=== PATIENT | female | born 1980 | race Caucasian/White ===

== ENCOUNTER 2020-10-26 09:52 | Outpatient (REF) | payer MEDICAID, SELFPAY | END 2020-10-26 09:53 | disposition home or self-care (01) | LOC: HO.LAB 09:52 | PROVIDERS: Visit Provider Internal Medicine | DX: Z20.822 Contact with and (suspected) exposure to COVID-19 (principal) | CPT/HCPCS: 36415; C9803; U0003 ==

== ENCOUNTER 2020-11-06 11:24 | Outpatient (REF) | payer MEDICAID, SELFPAY | END 2020-11-06 11:25 | disposition home or self-care (01) | LOC: HO.LAB 11:24 | PROVIDERS: Visit Provider Internal Medicine | DX: Z20.822 Contact with and (suspected) exposure to COVID-19 (principal) | CPT/HCPCS: 36415; C9803; U0003; U0005 ==

== ENCOUNTER 2021-02-18 09:26 | Emergency (ER) | payer MEDICAID, SELFPAY ==
--- NOTE | ~2021-02-18 | US_ITS ---
EXAMINATION: US VENOUS ULTRASOUND WITH DOPPLER LOWER EXTREMITY, BILATERAL CLINICAL INFORMATION: Pain, swelling COMPARISON: None TECHNIQUE: Ultrasound of the deep veins is performed from the hip to the calf with compression sonography and color and pulse Doppler assessment. Spectral analysis with color-flow imaging is performed. FINDINGS: RIGHT: There is normal venous compression and respiratory variation and augmented flow. The visualized common femoral vein, superficial femoral vein, profunda femoral vein, popliteal vein, and the trifurcation region shows no evidence of deep venous thrombosis. There is no significant popliteal fossa cyst. LEFT: There is normal venous compression and respiratory variation and augmented flow. The visualized common femoral vein, superficial femoral vein, profunda femoral vein, popliteal vein, and the trifurcation region shows no evidence of deep venous thrombosis. There is no significant popliteal fossa cyst. Prominent left inguinal lymph nodes are present. If the patient's symptoms persist, followup ultrasound in 5 days 7 days might be of value to exclude proximal propagation from a non-visualized calf vein. US/US venous duplex LE BI IMPRESSION: No DVT demonstrated in the bilateral lower extremity.
--- NOTE | 2021-02-18 12:32 | PC.NURSE ---
CALLED WR PATIENT, NO RESPONSE TO CALL FOR TRIAGE
[2021-02-18 15:54] VITALS: BP 109/79; PULSE 70; RESP 16; TEMP 36.4; O2SAT 96; BMI 35.2
--- NOTE | 2021-02-18 18:00 | ED_ITS ---
HPI - General Adult General Chief complaint: General Medical Stated complaint: leg swollen,breast swollen Time Seen by Provider: 02/18/21 17:57 Source: patient Mode of arrival: ambulatory Limitations: no limitations History of Present Illness MD complaint: lower extremity pain and swelling Onset (ago): day(s) (2) Location: left, right and lower extremity Radiation: non-radiation Severity: moderate Quality: aching Pain Consistency: constant Relieving factors: none Exacerbating factors: movement Associated symptoms: other (has redness to lower legs also c/o small pimple under R breast) Treatments prior to arrival: none Related Data Previous Rx's Medication Instructions Recorded cephalexin 500 mg PO BID 7 Days #14 cap 02/18/21 doxycycline hyclate 100 mg PO BID 7 Days #14 cap 02/18/21 furosemide [Lasix] 20 mg PO DAILY 3 Days #3 tab 02/18/21 Allergies Allergy/AdvReac Type Severity Reaction Status Date / Time No Known Allergies Allergy Unverified 06/15/20 15:20 Review of Systems Review of Systems: Constitutional : No Weight loss, No Fever, No Chills, No Fatigue, No Malaise ENT/Mouth : No sore throat, No Rhinorrhea Eyes: No Eye Pain, No Swelling, No Redness Cardiovascular : No Chest Pain, No SOB, No Dyspnea on Exertion, No Orthopnea, pos Edema, No Palpitations Respiratory : No Cough, No Sputum, No Wheezing Gastrointestinal : No Nausea, No Vomiting, No Diarrhea, No Constipation, No abdominal Pain, No Hematochezia, No Melena Genitourinary : No Dysuria, No Urinary Frequency, No Hematuria, Musculoskeletal : No joint pain, No Myalgias, No Joint Swelling Skin : No Skin Lesions, pos rash Neuro : No Weakness, No Numbness, No Dizziness, No Headache Psych : No Anxiety/Panic, No Depression Heme/Lymph: No Bruising, No Bleeding,No Lymphadenopathy Endocrine : No Polyuria, No Polydipsia All other systems reviewed and are negative [facility] Past Medical History Attestation statement: The following information was validated with the patient. Medical History No active medical problems Surgical History (Updated 02/18/21 @ 15:59 by Kiley Browne) Previous section Social History Social History (Updated 02/18/21 @ 18:09 by Lyndsay Saenz DO) Smoking Status: Never smoker Advance Directives: Yes Advance Directives Information Provided: Yes Advance Directives on File: No Patient : No Physical Exam Vital Signs: Vital Signs: Last Vital Signs Temp 97.6 F 02/18/21 15:54 Pulse 70 02/18/21 15:54 Resp 16 02/18/21 15:54 BP 109/79 02/18/21 15:54 Pulse Ox 96 02/18/21 15:54 Body Mass Index 35.2 Appearance: Alert. Oriented X3. No acute distress. Eyes: Pupils equal, round and reactive to light. ENT: Pharynx normal. Neck: Normal inspection. Neck supple. CVS: Normal heart rate and rhythm. Pulses normal. chest: R breast small pimple under breast - drained no fluctuance no erythema Respiratory: No respiratory distress. Breath sounds normal. Abdomen: Soft and nontender. Skin: Skin warm and dry. Normal skin color. Normal skin turgor. Extremities: 1+ bilateral lower extremity edema. mild erythema no fluctuance, no lymphangitis, mild warmth anterior shins Neuro: Oriented X 3. No motor deficit. No sensory deficit. Course Course Course Narrative: negative for DVT afebrile no WBC count will start on abx and lasix x 2 days Medical Decision Making MDM Narrative Medical decision making narrative: 40 yo female with LE edema with mild erythema appears mild cellulitis denies systemic symptoms at this time will obtain basic labs, US to r/o DVT, likely PO abx and lasix x 2 days Lab Data Result diagrams: 02/18/21 18:16 02/18/21 18:16 Labs: Lab Results 02/18/21 02/18/21 02/18/21 Range/Units 18:16 18:16 18:16 WBC 5.4 (4.8-10.8) X10*3/uL RBC 4.25 (4.20-5.50) X10*6/uL Hgb 10.6 L (12.0-16.0) g/dl Hct 35.3 L (37-47) % MCV 83.1 (80-98) fL MCH 24.9 L (27.0-33.0) pg MCHC 30.0 L (31.0-35.0) g/dl RDW 15.0 (11.0-16.0) % Plt Count 346 (160-400) X10*3/uL MPV 10.3 (9.4-12.3) fL Immature Gran % (Auto) 0.4 (0.0-0.4) % Neut % (Auto) 43.5 L (45-73) % Lymph % (Auto) 32.7 (20-40) % [place] % (Auto) 9.2 (2-11) % Eos % (Auto) 13.3 H (0-4) % Baso % (Auto) 0.9 (0-2) % Lymph # (Auto) 1.8 (1.2-4.9) X10*3/uL [place] # (Auto) 0.5 (0.1-1.2) X10*3/uL Eos # (Auto) 0.7 H (0.0-0.4) X10*3/uL Baso # (Auto) 0.1 (0.0-0.2) X10*3/uL Abs Immat Gran (auto) 0.02 (0.00-0.03) X10*3/uL Absolute Neuts (auto) 2.4 (2.0-8.3) X10*3/uL Absolute Nucleated RBC 0.000 (0.0-0.012) X10*3/uL Nucleated RBC % (auto) 0.0 (0.0-0.2) /100WBC Hold Blue Top SEE NOTE Sodium 138 (135-145) mmol/L Potassium 4.2 (3.3-5.1) mmol/L Chloride 102 (96-108) mmol/L Carbon Dioxide 27 (22-29) mmol/L Anion Gap 13 (12-20) BUN 9 (9-16) mg/dL Creatinine 0.75 (0.5-1.4) mg/dL Estim Creat Clear Calc 96.2 Estimated GFR > 60 Random Glucose 111 (60-115) mg/dL Calcium 9.1 (8.4-10.2) mg/dL Total Bilirubin 0.4 (0.0-1.0) mg/dL Direct Bilirubin < 0.2 (0.0-0.5) mg/dL AST 20 (5-31) U/L ALT 18 (0-31) U/L Alkaline Phosphatase 86 (39-117) U/L Total Protein 6.6 (6.5-8.0) g/dL Albumin 3.6 (3.5-5.0) g/dL Discharge Plan Discharge Clinical Impression: Bilateral edema of lower extremity Cellulitis Qualifiers: Site of cellulitis: extremity Site of cellulitis of extremity: lower extremity Laterality: unspecified laterality Qualified Code(s): L03.119 - Cellulitis of unspecified part of limb Patient Disposition: Home, Self-Care Instructions: Cellulitis (ED), Edema (ED) Additional Instructions: return to ED for any worsening symptoms or concerns Prescriptions: New doxycycline hyclate 100 mg capsule 100 mg PO BID 7 Days Qty: 14 RF: 0 cephalexin 500 mg capsule 500 mg PO BID 7 Days Qty: 14 RF: 0 furosemide [Lasix] 20 mg tablet 20 mg PO DAILY 3 Days Qty: 3 RF: 0 Referrals: Physician,Unknown [Primary Care Provider] - 2 days (if not better) Interventions: LWBS Worksheet Last Done: 02/18/21 14:16
[2021-02-18 18:20] LABS: MANUAL DIFF FLAG NO
[2021-02-18 18:21] LABS: Basophils Absolute Auto 0.1 X10*3/uL (0.0-0.2); Basophils Percent Auto 0.9 % (0-2); Eosinophils Absolute Auto 0.7 X10*3/uL (0.0-0.4); Eosinophils Percent Auto 13.3 % (0-4); Hematocrit 35.3 % (37-47); Hemoglobin 10.6 g/dl (12.0-16.0); Imm Gran Abs Auto 0.02 X10*3/uL (0.00-0.03); Imm Gran Pct Auto 0.4 % (0.0-0.4); Lymphocytes Absolute Auto 1.8 X10*3/uL (1.2-4.9); Lymphocytes Percent Auto 32.7 % (20-40); Mean Corpuscular Hemoglobin 24.9 pg (27.0-33.0); Mean Corpuscular Volume 83.1 fL (80-98); Mean Platelet Volume 10.3 fL (9.4-12.3); Monocytes Absolute Auto 0.5 X10*3/uL (0.1-1.2); Monocytes Percent Auto 9.2 % (2-11); Neutrophils Absolute Auto 2.4 X10*3/uL (2.0-8.3); Neutrophils Percent Auto 43.5 % (45-73); Platelet Count 346 X10*3/uL (160-400); Red Blood Count 4.25 X10*6/uL (4.20-5.50); White Blood Count 5.4 X10*3/uL (4.8-10.8)
[2021-02-18 18:57] LABS: Alanine Aminotransferase 18 U/L (0-31); Albumin Level 3.6 g/dL (3.5-5.0); Alkaline Phosphatase 86 U/L (39-117); Anion Gap 13 (12-20); Aspartate Amino Transferase 20 U/L (5-31); Bilirubin Direct < 0.2 mg/dL (0.0-0.5); Bilirubin Total 0.4 mg/dL (0.0-1.0); Blood Urea Nitrogen 9 mg/dL (9-16); Calcium 9.1 mg/dL (8.4-10.2); Carbon Dioxide 27 mmol/L (22-29); Chloride 102 mmol/L (96-108); Creatinine Clr Calc Pharmacy 96.2; Estimated Glomerular Filt Rate > 60; Glucose Random 111 mg/dL (60-115); Potassium 4.2 mmol/L (3.3-5.1); Sodium 138 mmol/L (135-145); Total Protein 6.6 g/dL (6.5-8.0)
[2021-02-18] MEDS: Furosemide 20 MG TABLET PO (19:42)
[2021-02-18] MEDS: cephALEXin 500 MG CAPSULE PO (19:44)
[2021-02-18 19:45] VITALS: BP 140/99; PULSE 90; RESP 16; TEMP 37; O2SAT 100
== END 2021-02-18 19:52 | disposition home or self-care (01) ==
PROVIDERS: Emergency Provider Emergency Medicine
DX: R60.0 Localized edema (principal); L03.119 Cellulitis of unspecified part of limb; Z79.899 Other long term (current) drug therapy
CPT/HCPCS: 36415; 80048; 80076; 85025; 93970; 99284

== ENCOUNTER 2021-07-12 05:55 | Emergency (ER) | payer MEDICAID, SELFPAY ==
[2021-07-12 06:07] VITALS: BP 151/88; PULSE 86; RESP 20; TEMP 36.6; O2SAT 100; BMI 46.2
[2021-07-12 06:13] VITALS: BP 157/81; PULSE 85; RESP 19; O2SAT 99
--- NOTE | 2021-07-12 06:21 | ED.GENADULT ---
HPI - General Adult General Chief complaint: General Medical Stated complaint: swollen legs and SoB Time Seen by Provider: 07/12/21 06:00 Source: patient Mode of arrival: ambulatory History of Present Illness HPI narrative: 40-year-old female, every day smoker, who presents with 1 week of worsening bilateral lower leg swelling without associated dyspnea on exertion, orthopnea, cough, recent travel, fevers, chills. Although triage note states that patient has complained of intermittent shortness of breath since last night. Patient states that she spends 12 hours a day on her feet and is never worn compression stockings. Related Data Previous Rx's Medication Instructions Recorded cephalexin 500 mg capsule 500 mg PO BID 7 Days #14 cap 02/18/21 doxycycline hyclate 100 mg capsule 100 mg PO BID 7 Days #14 cap 02/18/21 furosemide 20 mg tablet (Lasix) 20 mg PO DAILY 3 Days #3 tab 02/18/21 Allergies Allergy/AdvReac Type Severity Reaction Status Date / Time No Known Allergies Allergy Unverified 07/12/21 06:12 Review of Systems Review of Systems: Pertinent positives and negatives as stated in HPI 10 point review systems is otherwise negative. PMFSH Past Medical History Source: nursing notes reviewed Medical History No active medical problems Surgical History Previous section Social History Social History Patient Tobacco Use Status: Current everyday Tobacco user Advance Directives: No Advance Directives Information Provided: Yes Patient : No Physical Exam Vital Signs: Vital Signs: Last Vital Signs Temp 97.8 F 07/12/21 06:07 Pulse 85 07/12/21 06:13 Resp 19 07/12/21 06:13 BP 157/81 H 07/12/21 06:13 Pulse Ox 99 07/12/21 06:13 Body Mass Index 46.2 VITAL SIGNS: Reviewed. GENERAL: Well developed, well nourished, in no acute distress. HEAD: Normocephalic/atraumatic EYES: PERRLA, EOMI OROPHARYNX: no oral lesions noted, posterior pharynx clear NECK: Supple, no adenopathy LUNGS: Normal breath sounds. SpO2<99> CARDIOVASCULAR: Regular rate and rhythm without noted murmurs, no JVD but bilateral lower extremity edema ABDOMEN: Obese, Soft, non-tender, non-distended with bowel sounds. EXTREMITIES: No cyanosis, clubbing but noted bilateral edema that is minimal pitting in nature without calf pain and good palpable/symmetrical DP/PT with obvious bilateral spider veins and sensation is intact, there is no erythema/induration. SKIN: Inspection of the skin reveals no rashes NEUROLOGIC: Alert and oriented x 4. Strength and sensation to light touch were grossly intact x 4. Course Course Course Narrative: 40-year-old female with history and clinical presentation most consistent with chronic venous stasis secondary to combination of body habitus/job/varicose veins. Low clinical suspicion for DVT or CHF but will rule out both. Review of all investigations otherwise negative for acute findings and ultimately patient will be discharged in stable condition with presumptive venous stasis resulting in patient's bilateral lower extremity swelling. All results and findings were discussed with her bedside. Medical Decision Making Lab Data Result diagrams: 07/12/21 06:22 07/12/21 06:22 Labs: Lab Results 07/12/21 07/12/21 07/12/21 Range/Units 06:22 06:22 06:22 WBC 6.7 (4.8-10.8) X10*3/uL RBC 4.16 L (4.20-5.50) X10*6/uL Hgb 10.0 L (12.0-16.0) g/dl Hct 32.8 L (37-47) % MCV 78.8 L (80-98) fL MCH 24.0 L (27.0-33.0) pg MCHC 30.5 L (31.0-35.0) g/dl RDW 15.8 (11.0-16.0) % Plt Count 394 (160-400) X10*3/uL MPV 9.6 (9.4-12.3) fL Immature Gran % (Auto) 0.1 (0.0-0.4) % Neut % (Auto) 57.6 (45-73) % Lymph % (Auto) 23.6 (20-40) % [place] % (Auto) 8.9 (2-11) % Eos % (Auto) 9.1 H (0-4) % Baso % (Auto) 0.7 (0-2) % Lymph # (Auto) 1.6 (1.2-4.9) X10*3/uL [place] # (Auto) 0.6 (0.1-1.2) X10*3/uL Eos # (Auto) 0.6 H (0.0-0.4) X10*3/uL Baso # (Auto) 0.1 (0.0-0.2) X10*3/uL Abs Immat Gran (auto) 0.01 (0.00-0.03) X10*3/uL Absolute Neuts (auto) 3.9 (2.0-8.3) X10*3/uL Absolute Nucleated RBC 0.000 (0.0-0.012) X10*3/uL Nucleated RBC % (auto) 0.0 (0.0-0.2) /100WBC D-Dimer 210 NG/ML Sodium 138 (135-145) mmol/L Potassium 3.7 (3.3-5.1) mmol/L Chloride 103 (96-108) mmol/L Carbon Dioxide 28 (22-29) mmol/L Anion Gap 11 L (12-20) BUN 12 (9-16) mg/dL Creatinine 0.70 (0.5-1.4) mg/dL Estim Creat Clear Calc 120.8 Estimated GFR > 60 Random Glucose 92 (60-115) mg/dL Calcium 8.8 (8.4-10.2) mg/dL Total Bilirubin 0.3 (0.0-1.0) mg/dL AST 21 (5-31) U/L ALT 18 (0-31) U/L Alkaline Phosphatase 79 (39-117) U/L B-Natriuretic Peptide (<100) pg/mL Total Protein 6.9 (6.5-8.0) g/dL Albumin 3.8 (3.5-5.0) g/dL Urine Color Urine Appearance Urine pH (5.0-8.0) Ur Specific [place] (1.005-1.025) Urine Protein (NEG-TRACE) MG/DL Urine Glucose (UA) (NEG) MG/DL Urine Ketones (NEG) MG/DL Urine Blood (NEG) Urine Nitrite (NEG) Ur Leukocyte Esterase (NEG) Urine Test (NEGATIVE) 10/07/12/21 07/12/21 Range/Units 06:22 06:35 06:35 WBC (4.8-10.8) X10*3/uL RBC (4.20-5.50) X10*6/uL Hgb (12.0-16.0) g/dl Hct (37-47) % MCV (80-98) fL MCH (27.0-33.0) pg MCHC (31.0-35.0) g/dl RDW (11.0-16.0) % Plt Count (160-400) X10*3/uL MPV (9.4-12.3) fL Immature Gran % (Auto) (0.0-0.4) % Neut % (Auto) (45-73) % Lymph % (Auto) (20-40) % [place] % (Auto) (2-11) % Eos % (Auto) (0-4) % Baso % (Auto) (0-2) % Lymph # (Auto) (1.2-4.9) X10*3/uL [place] # (Auto) (0.1-1.2) X10*3/uL Eos # (Auto) (0.0-0.4) X10*3/uL Baso # (Auto) (0.0-0.2) X10*3/uL Abs Immat Gran (auto) (0.00-0.03) X10*3/uL Absolute Neuts (auto) (2.0-8.3) X10*3/uL Absolute Nucleated RBC (0.0-0.012) X10*3/uL Nucleated RBC % (auto) (0.0-0.2) /100WBC D-Dimer NG/ML Sodium (135-145) mmol/L Potassium (3.3-5.1) mmol/L Chloride (96-108) mmol/L Carbon Dioxide (22-29) mmol/L Anion Gap (12-20) BUN (9-16) mg/dL Creatinine (0.5-1.4) mg/dL Estim Creat Clear Calc Estimated GFR Random Glucose (60-115) mg/dL Calcium (8.4-10.2) mg/dL Total Bilirubin (0.0-1.0) mg/dL AST (5-31) U/L ALT (0-31) U/L Alkaline Phosphatase (39-117) U/L B-Natriuretic Peptide 83 (<100) pg/mL Total Protein (6.5-8.0) g/dL Albumin (3.5-5.0) g/dL Urine Color YELLOW Urine Appearance HAZY Urine pH 6.0 (5.0-8.0) Ur Specific [place] 1.025 (1.005-1.025) Urine Protein NEG (NEG-TRACE) MG/DL Urine Glucose (UA) NEG (NEG) MG/DL Urine Ketones NEG (NEG) MG/DL Urine Blood 1+ H (NEG) Urine Nitrite NEG (NEG) Ur Leukocyte Esterase TRACE H (NEG) Urine Test NEGATIVE (NEGATIVE) Discharge Plan Discharge Clinical Impression: Bilateral lower extremity edema, Venous stasis Patient Disposition: Home, Self-Care Instructions: Venous Insufficiency (DC), Leg Edema (ED) Additional Instructions: Knee high compression stockings at a minimum 30 mmHg, weight loss, and follow up with your PCP. Recommend caution with salt intake. Recommend smoking cessation. Return to the ER for acute worsening of your symptoms. Prescriptions: No Action doxycycline hyclate 100 mg capsule 100 mg PO BID 7 Days Qty: 14 RF: 0 cephalexin 500 mg capsule 500 mg PO BID 7 Days Qty: 14 RF: 0 furosemide [Lasix] 20 mg tablet 20 mg PO DAILY 3 Days Qty: 3 RF: 0 Referrals: Physician,Unknown J [Primary Care Provider] - 2 days Stand Alone Forms: Work/School Release
[2021-07-12 06:27] LABS: MANUAL DIFF FLAG NO
[2021-07-12 06:28] LABS: Basophils Absolute Auto 0.1 X10*3/uL (0.0-0.2); Basophils Percent Auto 0.7 % (0-2); Eosinophils Absolute Auto 0.6 X10*3/uL (0.0-0.4); Eosinophils Percent Auto 9.1 % (0-4); Hematocrit 32.8 % (37-47); Imm Gran Abs Auto 0.01 X10*3/uL (0.00-0.03); Imm Gran Pct Auto 0.1 % (0.0-0.4); Lymphocytes Absolute Auto 1.6 X10*3/uL (1.2-4.9); Lymphocytes Percent Auto 23.6 % (20-40); Mean Corpuscular HGB Conc 30.5 g/dl (31.0-35.0); Mean Corpuscular Volume 78.8 fL (80-98); Mean Platelet Volume 9.6 fL (9.4-12.3); Monocytes Absolute Auto 0.6 X10*3/uL (0.1-1.2); Monocytes Percent Auto 8.9 % (2-11); Neutrophils Absolute Auto 3.9 X10*3/uL (2.0-8.3); Neutrophils Percent Auto 57.6 % (45-73); Platelet Count 394 X10*3/uL (160-400); Red Blood Count 4.16 X10*6/uL (4.20-5.50); Red Cell Distribution Width 15.8 % (11.0-16.0); White Blood Count 6.7 X10*3/uL (4.8-10.8)
[2021-07-12 06:44] LABS: Alanine Aminotransferase 18 U/L (0-31); Albumin Level 3.8 g/dL (3.5-5.0); Alkaline Phosphatase 79 U/L (39-117); Anion Gap 11 (12-20); Aspartate Amino Transferase 21 U/L (5-31); Bilirubin Total 0.3 mg/dL (0.0-1.0); Blood Urea Nitrogen 12 mg/dL (9-16); Calcium 8.8 mg/dL (8.4-10.2); Carbon Dioxide 28 mmol/L (22-29); Chloride 103 mmol/L (96-108); Creatinine Clr Calc Pharmacy 120.8; D Dimer 210 NG/ML; Estimated Glomerular Filt Rate > 60; Glucose Random 92 mg/dL (60-115); Potassium 3.7 mmol/L (3.3-5.1); Sodium 138 mmol/L (135-145); Total Protein 6.9 g/dL (6.5-8.0)
[2021-07-12 06:45] LABS: Appearance Urine HAZY; Color Urine YELLOW; Glucose Urine UA NEG (NEG); Leukocyte Esterase Urine TRACE (NEG); Nitrite Urine NEG (NEG); Specific Gravity - Urine 1.025 (1.005-1.025); UACC Culture Trigger YES; UPreg QC Valid YES; Urine Blood 1+ (NEG); Urine Ketones NEG (NEG); Urine Pregnancy NEGATIVE (NEGATIVE); Urine Protein NEG (NEG-TRACE)
[2021-07-12 06:49] LABS: B Type Natriuretic Peptide 83 pg/mL (<100)
[2021-07-12 06:54] LABS: Squamous Epithelial Cell Urine 4+ /LPF
[2021-07-12 06:57] LABS: Bacteria Urine 1+ /LPF
== END 2021-07-12 07:29 | disposition home or self-care (01) ==
PROVIDERS: Emergency Provider Student in an Organized Health Care Education/Training Program
DX: R60.0 Localized edema (principal); I87.8 Other specified disorders of veins; R06.02 Shortness of breath; F17.200 Nicotine dependence, unspecified, uncomplicated
CPT/HCPCS: 36415; 80053; 81001; 81025; 83880; 85025; 85379; 87086; 99283; 99284

== ENCOUNTER 2023-09-16 12:06 | Emergency (ER) | payer MEDICAID, SELFPAY ==
[2023-09-16 12:49] VITALS: BP 151/86; PULSE 99; RESP 18; TEMP 37.1; O2SAT 100; BMI 36.5
--- NOTE | 2023-09-16 12:58 | ED_ITS ---
HPI - General Adult General Chief complaint: General Medical Stated complaint: ear infection swollen vein in neck Related Data Previous Rx's Medication Instructions Recorded cephalexin 500 mg capsule 500 mg PO BID 7 days #14 caps 02/18/21 doxycycline hyclate 100 mg capsule 100 mg PO BID 7 days #14 caps 02/18/21 furosemide 20 mg tablet (Lasix) 20 mg PO DAILY 3 days #3 tabs 02/18/21 Allergies Allergy/AdvReac Type Severity Reaction Status Date / Time No Known Allergies Allergy Unverified 07/12/21 06:12 [facility] Past Medical History Medical History No active medical problems Surgical History Previous section Social History Social History Patient Tobacco Use Status: Current everyday Tobacco user Advance Directives: No Advance Directives Information Provided: No Physical Exam ED Vital Signs: Vital Signs - 24 hr 09/16/23 12:49 Temperature 98.8 F Pulse Rate 99 Respiratory Rate 18 Blood Pressure 151/86 H Pulse Oximetry 100 Oxygen Delivery Method Room Air BMI result Body Mass Index 36.5 Course Course Course Narrative: RME- 42 year old female presents for evaluation of left ear pain and changes in her voice. She reports that she noticed change in her voice 2 weeks ago and left ear pain starting 3-4 days ago. On exam she has excoriations to the left external ear canal however there is no edema, otorrhea or middle ear effusion. No mastoid tenderness or edema. The patient has a 1 cm round hole in the hard palate. She denies ever having known of a cleft palate or abnormality at all to the hard palate. Given the voice changes and findings on exam will get a CT scan of the sinuses to rule out osteolytic lesions. Medical Decision Making Lab Data 09/16/23 14:21 09/16/23 14:21 Labs: Lab Results 09/16/23 Range/Units 14: WBC 5.7 (4.8-10.8) X10*3/uL RBC 4.37 (4.20-5.50) X10*6/uL Hgb 8.5 L (12.0-16.0) g/dl Hct 29.8 L (37.0-47.0) % MCV 68.2 L (80.0-98.0) fL MCH 19.5 L (27.0-33.0) pg MCHC 28.5 L (31.0-35.0) g/dl RDW 17.9 H (11.0-16.0) % Plt Count 414 H (160-400) X10*3/uL MPV 9.6 (9.4-12.3) fL Immature Gran % (Auto) 0.3 (0.0-0.4) % Neut % (Auto) 67.9 (45-73) % Lymph % (Auto) 22.2 (20-40) % [place] % (Auto) 4.7 (2-11) % Eos % (Auto) 3.7 (0-4) % Baso % (Auto) 1.2 (0-2) % Lymph # (Auto) 1.3 (1.2-4.9) X10*3/uL [place] # (Auto) 0.3 (0.1-1.2) X10*3/uL Eos # (Auto) 0.2 (0.0-0.4) X10*3/uL Baso # (Auto) 0.1 (0.0-0.2) X10*3/uL Abs Immat Gran (auto) 0.02 (0.00-0.03) X10*3/uL Absolute Neuts (auto) 3.9 (2.0-8.3) x10*3/uL Absolute Nucleated RBC 0.000 (0.0-0.012) X10*3/uL Nucleated RBC % (auto) 0.0 (0.0-0.2) /100WBC Sodium 141 (135-145) mmol/L Potassium 4.3 (3.3-5.1) mmol/L Chloride 106 (96-108) mmol/L Carbon Dioxide 28 (22-29) mmol/L Anion Gap 11 L (12-20) BUN 9 (9-16) mg/dL Creatinine 0.68 (0.5-1.4) mg/dL Estim Creat Clear Calc 119.5 Estimated GFR > 60 Random Glucose 128 H (60-115) mg/dL Calcium 9.1 (8.4-10.2) mg/dL Beta HCG, Quant < 2 mIU/mL Discharge Plan Discharge Clinical Impression: Ear pain, left Patient Disposition: Left W/O Completing Treatment Prescriptions: No Action doxycycline hyclate 100 mg capsule 100 mg PO BID 7 Days Qty: 14 0RF cephalexin 500 mg capsule 500 mg PO BID 7 Days Qty: 14 0RF furosemide [Lasix] 20 mg tablet 20 mg PO DAILY 3 Days Qty: 3 0RF Discharge Date/Time: 09/16/23 17:47
[2023-09-16 14:26] LABS: Basophils Absolute Auto 0.1 X10*3/uL (0.0-0.2); Basophils Percent Auto 1.2 % (0-2); Eosinophils Absolute Auto 0.2 X10*3/uL (0.0-0.4); Eosinophils Percent Auto 3.7 % (0-4); Hematocrit 29.8 % (37.0-47.0); Hemoglobin 8.5 g/dl (12.0-16.0); Imm Gran Abs Auto 0.02 X10*3/uL (0.00-0.03); Imm Gran Pct Auto 0.3 % (0.0-0.4); Lymphocytes Absolute Auto 1.3 X10*3/uL (1.2-4.9); Lymphocytes Percent Auto 22.2 % (20-40); MANUAL DIFF FLAG NO; Mean Corpuscular HGB Conc 28.5 g/dl (31.0-35.0); Mean Corpuscular Hemoglobin 19.5 pg (27.0-33.0); Mean Corpuscular Volume 68.2 fL (80.0-98.0); Mean Platelet Volume 9.6 fL (9.4-12.3); Monocytes Absolute Auto 0.3 X10*3/uL (0.1-1.2); Monocytes Percent Auto 4.7 % (2-11); Neutrophils Absolute Auto 3.9 x10*3/uL (2.0-8.3); Neutrophils Percent Auto 67.9 % (45-73); Platelet Count 414 X10*3/uL (160-400); Red Blood Count 4.37 X10*6/uL (4.20-5.50); Red Cell Distribution Width 17.9 % (11.0-16.0); White Blood Count 5.7 X10*3/uL (4.8-10.8)
[2023-09-16 14:46] LABS: Anion Gap 11 (12-20); Blood Urea Nitrogen 9 mg/dL (9-16); Calcium 9.1 mg/dL (8.4-10.2); Carbon Dioxide 28 mmol/L (22-29); Chloride 106 mmol/L (96-108); Creatinine Clr Calc Pharmacy 119.5; Estimated Glomerular Filt Rate > 60; Glucose Random 128 mg/dL (60-115); Potassium 4.3 mmol/L (3.3-5.1); Sodium 141 mmol/L (135-145)
[2023-09-16 14:54] LABS: HCG Quantitative < 2 mIU/mL
== END 2023-09-16 17:47 | disposition left against medical advice (07) ==
PROVIDERS: Physician Assistant; Emergency Provider Emergency Medicine
DX: H92.02 Otalgia, left ear (principal); Z79.899 Other long term (current) drug therapy
CPT/HCPCS: 36415; 80048; 84702; 85025; 99281; 99283